=== PATIENT | female | born 1960 | race Caucasian/White ===

== ENCOUNTER 2024-12-27 18:38 | Emergency (ER) | payer MEDICARE, OTHER, SELFPAY ==
[2024-12-27 18:45] VITALS: BP 125/69; PULSE 85; RESP 18; TEMP 36.9; O2SAT 97; BMI 36.6
[2024-12-27] MEDS: SULFA/TRIMETHOPRIM 1 TABLET 1 EACH PO (19:07)
--- NOTE | 2024-12-27 19:10 | ED_ITS ---
<Statement entered by Olesya Ennis DO - 12/28/24 01:08> I was consulted by the [facility], and we discussed the complexity of problems being addressed. I approve the treatment and management plan for this patient's care in the emergency department, thus performing a substantial portion of the medical decision making. Olesya Ennis DO Discharge Plan Disposition Patient Disposition: Home, Self-Care Prescriptions Prescriptions: New sulfamethoxazole-trimethoprim [Bactrim DS] 800-160 mg tablet 1 tab PO BID 14 Days Qty: 28 0RF sulfamethoxazole-trimethoprim [Bactrim DS] 800-160 mg tablet 1 tab PO BID 14 Days Qty: 28 0RF Activity Restrictions/Add. Instructions Additional Instructions/Restrictions: Take antibiotic as directed. Please change dressing once a day after washing area with soap and water. Clinical Impressions Clinical Impression: Wound cellulitis Instructions Patient Instructions: Cellulitis Print Language Print Language: German Discharge ED Provider: Olesya Ennis General Adult HPI <Ruba Loyola (ED), COMPUTER REPAIR ENGINEER - Last Filed: 12/27/24 22:34> General Chief complaint: Wound/Laceration Stated complaint: spot on ABD Time Seen by Provider: 12/27/24 18:45 Mode of Arrival: EMS Source of Information: Patient Description of Symptoms (Recalled from ER Triage Doc. by RN): Pt arrived to ED with c/o not recieving antibiotics following her appointment today at 1630. Pt has a wound on her abdomen with dressing in place. Pt was told by a BENEFITS CLERK at her residence she had MRSA and would recieve antibiotics. PT states she called EMS because she has not recieved any. History of Present Illness HPI narrative: 64-year-old female presents to the ED today for complaint of not receiving her antibiotics after her appointment at 430 today. She has a small open area on her abdomen that she hit on something in her room. She was told by the nurse practitioner that she may have a staph and she would need antibiotics. She called EMS because she is concerned about not getting any antibiotics. She is really worried about this and wants her antibiotics. She has no fevers or chills. No nausea, vomiting or diarrhea. No other symptoms. Related Data Previous Rx's ?Medication ?Instructions ?Recorded sulfamethoxazole 800 1 tab PO BID 14 days #28 tab s 12/27/24 mg-trimethoprim 160 mg tablet (Bactrim DS) sulfamethoxazole 800 1 tab PO BID 14 days #28 tab s 12/27/24 mg-trimethoprim 160 mg tablet (Bactrim DS) Allergies Allergy/AdvReac Type Severity Reaction Status Date / Time Penicillins Allergy Rash Verified 12/27/24 18:51 PFSH <Ruba Loyola (ED), COMPUTER REPAIR ENGINEER - Last Filed: 12/27/24 22:34> PFS Disclaimer: The information contained in this section may have been updated after the patient was seen, as this information can be updated by other users. Social History (Updated 12/27/24 @ 22:34 by Ruba Loyola (ED), COMPUTER REPAIR ENGINEER) Smoking Status: Never smoker alcohol intake: former current occupational status: other Travel in the last 8 weeks?: None Have you lived/traveled outside [place] in past 30 days?: No Contact w/someone who lives/traveled outside [place] past 30 days?: No Exposure to someone with infectious disease in past 14 days?: No Do you have a fever (greater than 100.4 F or 38 C)?: No Have you tested positive for COVID-19?: No Exposed to someone with COVID-19 in past 14 days?: No Do you have a sore throat?: No Do you have a cough?: No Do you have any weakness?: No Do you have any diarrhea?: No Are you experiencing any unusual bleeding?: No Do you have any muscle aches/pain?: No Do you have any abdominal pain?: No Are you experiencing loss of taste or smell?: No <Ruba Loyola (ED), COMPUTER REPAIR ENGINEER - Last Filed: 12/27/24 22:34> ROS Obtained: Yes Systems reviewed as appropriate & no additional complaints except as documented Constitutional Constitutional: Reports as per HPI Physical Exam <Ruba Loyola (ED), COMPUTER REPAIR ENGINEER - Last Filed: 12/27/24 22:34> General General appearance: alert and in no apparent distress Head Head exam: atraumatic Eye Eye exam: Present PERRL and EOMI ENT ENT exam: Present normal oropharynx Neck Neck exam: Present full ROM Respiratory Respiratory exam: Present normal lung sounds bilaterally Cardiovascular Cardiovascular exam: Present regular rate and normal heart sounds Abdominal Exam Abdominal exam: Present soft Neurological Exam Neurological exam: Present alert and oriented X3 Skin Skin exam: Present warm, dry and erythema (Covered with tegaderm) Medical Decision Making <Ruba Loyola (ED), COMPUTER REPAIR ENGINEER - Last Filed: 12/27/24 22:34> Medical Records Screening: Per USPSTF and CDC recommendations, given the prevalence of disease in our region, it is our hospital?s policy to screen for HIV and viral Hepatitis for all patients aged 18 and over and those with ongoing risk factors. Frankie Inquiry Pt receiving controlled substance: No Frankie was queried for this patient: No Vital Signs: 12/27/24 18:45 12/27/24 20:11 Temperature 98.5 F 98.0 F Temperature Source Oral Oral Pulse Rate 72 Pulse Rate [Right] 85 Respiratory Rate 18 20 Blood Pressure 111/72 Blood Pressure [Right Arm] 125/69 Blood Pressure Mean [Right Arm] 87 Blood Pressure Source Automatic Cuff Blood Pressure Source [Right Arm] Automatic Cuff Blood Pressure Position Sitting Blood Pressure Position [Right Arm] Sitting 02 Sat by Pulse Oximetry 97 Oxygen Delivery Method Room Air Room Air Orders (Tests/Meds): ED MEDICATIONS Discontinued Medications Generic Name Dose Route Start Last Admin Trade Name Freq PRN Reason Stop Dose Admin Trimethoprim/Sulfamethoxazole 1 each 12/27/24 18:54 12/27/24 19:07 Sulfa/Trimethoprim 1 Tablet PO 12/27/24 18:55 1 each ONCE ONE Administration Medical Decision Narrative: patient is a 64-year-old female presenting to the emergency department for evaluation of small open wound on right side of abdomen. Patient is hemodynamically stable and nontoxic-appearing upon arrival, afebrile. Differential diagnosis includes wound on right side of abdomen. Workup required as patient has already received antibiotics but she did not receive them so she was asking just to get her antibiotics written. Patient is concerned that she will get sick if she does not have them. Patient is safe for discharge home when she gets a dose of antibiotics here in the ED. <Olesya Ennis DO - Last Filed: 12/28/24 01:08> Vital Signs: 12/27/24 18:45 12/27/24 20:11 Temperature 98.5 F 98.0 F Temperature Source Oral Oral Pulse Rate 72 Pulse Rate [Right] 85 Respiratory Rate 18 20 Blood Pressure 111/72 Blood Pressure [Right Arm] 125/69 Blood Pressure Mean [Right Arm] 87 Blood Pressure Source Automatic Cuff Blood Pressure Source [Right Arm] Automatic Cuff Blood Pressure Position Sitting Blood Pressure Position [Right Arm] Sitting 02 Sat by Pulse Oximetry 97 Oxygen Delivery Method Room Air Room Air Lab Data Lab results reviewed: Yes I reviewed the patient's lab results. Orders (Tests/Meds): ED MEDICATIONS Discontinued Medications Generic Name Dose Route Start Last Admin Trade Name Elie PRN Reason Stop Dose Admin Trimethoprim/Sulfamethoxazole 1 each 12/27/24 18:54 12/27/24 19:07 Sulfa/Trimethoprim 1 Tablet PO 12/27/24 18:55 1 each ONCE ONE Administration Medical Decision Narrative: patient is a 64-year-old female presenting to the emergency department for evaluation of small open wound on right side of abdomen. Patient is hemodynamically stable and nontoxic-appearing upon arrival, afebrile. Differential diagnosis includes cellulitis, laceration, abscess, electrolyte abnormalities, amongst others. Workup required as patient has already received antibiotics but she did not receive them so she was asking just to get her antibiotics written. Patient is concerned that she will get sick if she does not have them. Patient is safe for discharge home when she gets a dose of antibiotics here in the ED. Critical Care <Ruba Loyola (ED), COMPUTER REPAIR ENGINEER - Last Filed: 12/27/24 22:34> Critical Care Time Critical Care Time: No
[2024-12-27 20:11] VITALS: BP 111/72; PULSE 72; RESP 20; TEMP 36.7; O2SAT 98
== END 2024-12-27 20:11 | disposition home or self-care (01) ==
PROVIDERS: Emergency Provider Student in an Organized Health Care Education/Training Program
DX: L03.311 Cellulitis of abdominal wall (principal)
CPT/HCPCS: 99282